=== PATIENT | male | born 1970 | race Caucasian/White ===

== ENCOUNTER → 2020-09-02 | Outpatient (CLI) | payer BC ==
[~2020-09-02] MED LIST: BICT1TAB PO; CALC250T PO; OMEP40CA42 PO; Vitamin D3 PO; [UNRECOGNIZED DRUG - OTHER] PO
[2020-09-02 09:48] LABS: ALANINE AMINOTRANSFERASE 33 U/L (12-78); ALBUMIN 4.4 g/dL (3.4-5.0); ANION GAP 5 mmol/L (5-15); CALCIUM 9.4 mg/dL (8.5-10.1); CHLORIDE 105 mmol/L (98-107); CREATININE 1.13 mg/dL (0.7-1.3)
[2020-09-02 09:50] LABS: ALKALINE PHOSPHATASE 76 U/L (45-117); TOTAL PROTEIN 8.7 g/dL (6.4-8.2)
== END | disposition home or self-care (01) ==
LOC: STAR 08:13
PROVIDERS: ATTEND Otolaryngology
DX: Z01.818 Encounter for other preprocedural examination (principal); J32.0 Chronic maxillary sinusitis; J35.2 Hypertrophy of adenoids; B20 Human immunodeficiency virus [HIV] disease; Z20.822 Contact with and (suspected) exposure to COVID-19
CPT/HCPCS: 36415; 80053; 93005; U0003

== ENCOUNTER 2020-09-08 09:16 | Day surgery (SDC) | payer BC ==
[~2020-09-08] VITALS: Ht 175.3 cm; Wt 117.5 kg
[~2020-09-08 09:16] MED LIST changes: +EPINEPHRINE TOPICAL SOLN 1 MG/ML, 30ML ONE; +LIDOCAINE/PF 1%, 30ML ONE; +OXYMETAZOLINE NASAL SPRAY 0.05%,30ML ONE
[2020-09-08 10:18] VITALS: BP 148/79
[2020-09-08] MEDS ORDERED: CHLORHEXIDINE 15 ML UDC ONE (10:28)
[2020-09-08] MEDS ORDERED: LACTATED RINGERS 1,000 ML IV SCH (10:30)
[2020-09-08] MEDS ORDERED: CHLORHEXIDINE 15 ML UDC MM ONE (10:30)
[2020-09-08] MEDS ORDERED: CEFAZOLIN 1,000 MG ONE (12:43)
[2020-09-08] MEDS ORDERED: SUCCINYLCHOLINE 20 MG/ML, 10ML ONE (12:43)
[2020-09-08] MEDS ORDERED: GLYCOPYRROLATE 0.2MG/1ML, 5ML ONE (12:43)
[2020-09-08] MEDS ORDERED: NEOSTIGMINE 1 MG/ML, 10ML ONE (12:43)
[2020-09-08] MEDS ORDERED: MIDAZOLAM 1 MG/ML, 2ML ONE (12:43)
[2020-09-08] MEDS ORDERED: FENTANYL PF 100 MCG/2ML ONE (12:43)
[2020-09-08] MEDS ORDERED: ROCURONIUM 10MG/ML,5ML ONE (12:43)
[2020-09-08] MEDS ORDERED: DEXAMETHASONE 4 MG/ML, 1ML ONE (12:43)
[2020-09-08] MEDS ORDERED: PROPOFOL 10 MG/ML, 20ML ONE (12:43)
[2020-09-08] MEDS ORDERED: ONDANSETRON 2MG/ML, 2ML ONE (12:43)
[2020-09-08] MEDS ORDERED: PHENYLEPHRINE 10 MG/ML ONE (13:33)
[2020-09-08] MEDS ORDERED: LIDOCAINE 1%-EPI 1:100K, 20ML INFIL ONE (14:13)
[2020-09-08] MEDS ORDERED: PROMETHAZINE 25 MG/ML, 1ML IVPush PRN ×2 (14:30→15:00)
[2020-09-08] MEDS ORDERED: ONDANSETRON 2MG/ML, 2ML IVPush PRN (14:30)
[2020-09-08] MEDS ORDERED: HYDROcodone/APAP 7.5-325MG/15ML UDC PO PRN ×2 (14:30→15:00)
[2020-09-08] MEDS ORDERED: MEPERIDINE/PF 25MG/0.5ML IVPush PRN (14:30)
[2020-09-08] MEDS ORDERED: HYDROmorphone 1 MG/ML, 1ML INJ IVPush PRN ×2 (14:30→15:00)
[2020-09-08] MEDS ORDERED: FENTANYL PF 100 MCG/2ML IV PRN ×2 (14:30→15:00)
[2020-09-08] MEDS ORDERED: OXYcodone 5 MG/5 ML ORAL.SOL UDC PO PRN ×2 (14:30→15:00)
[2020-09-08] MEDS ORDERED: BACITRACIN OINT 500U/GM, 15 GM ONE (14:43)
[2020-09-08] MEDS ORDERED: PROMETHAZINE 12.5 MG SUPP PR PRN (15:00)
[2020-09-08] MEDS ORDERED: LORazepam 2 MG/ML, 1ML ONE (15:09)
[2020-09-08] MEDS ORDERED: LORazepam 2 MG/ML, 1ML IVPush PRN (15:30)
[2020-09-08] MEDS ORDERED: hydrALAzine 20 MG/ML, 1ML IV PRN (16:30)
[2020-09-08] MEDS ORDERED: LABETALOL 5MG/ML, 20ML IV PRN (16:30)
[2020-09-08] MEDS ORDERED: hydrALAzine 20 MG/ML, 1ML ONE (16:30)
[2020-09-08] MEDS ORDERED: LABETALOL 5MG/ML, 20ML ONE (16:40)
== END 2020-09-08 18:20 | disposition home or self-care (01) ==
LOC: OUT 09:16
PROVIDERS: ATTEND Otolaryngology
DX: J32.0 Chronic maxillary sinusitis (principal); J34.3 Hypertrophy of nasal turbinates; J35.2 Hypertrophy of adenoids; J34.89 Other specified disorders of nose and nasal sinuses; B20 Human immunodeficiency virus [HIV] disease; E11.9 Type 2 diabetes mellitus without complications; K21.9 Gastro-esophageal reflux disease without esophagitis; F32.9 Major depressive disorder, single episode, unspecified; F41.9 Anxiety disorder, unspecified; Z79.899 Other long term (current) drug therapy; Z88.8 Allergy status to other drugs, medicaments and biological substances; Z98.890 Other specified postprocedural states; Z83.3 Family history of diabetes mellitus; Z80.9 Family history of malignant neoplasm, unspecified
CPT/HCPCS: 30140; 31240; 31255; 31256; 42831; 88304; 88305; J0330; J0360; J0690; J1100; J2060; J2250; J2370; J2405; J2704; J2710; J3010; J7120

== ENCOUNTER 2020-09-22 11:28 | Day surgery (SDC) | payer BC ==
[~2020-09-22] VITALS: Ht 175.3 cm; Wt 117.2 kg
[~2020-09-22 11:28] MED LIST changes: -EPINEPHRINE TOPICAL SOLN 1 MG/ML, 30ML ONE; -LIDOCAINE/PF 1%, 30ML ONE; -OXYMETAZOLINE NASAL SPRAY 0.05%,30ML ONE
[2020-09-22 11:59] VITALS: BP 126/79
[2020-09-22] MEDS ORDERED: CHLORHEXIDINE 15 ML UDC ONE (12:26)
[2020-09-22] MEDS ORDERED: OXYMETAZOLINE NASAL SPRAY 0.05%,30ML ONE (12:26)
== END 2020-09-22 13:10 | disposition home or self-care (01) ==
LOC: OUT 11:28
PROVIDERS: ATTEND Otolaryngology
DX: J32.0 Chronic maxillary sinusitis (principal); J34.3 Hypertrophy of nasal turbinates; J35.2 Hypertrophy of adenoids; Z20.822 Contact with and (suspected) exposure to COVID-19; Z79.899 Other long term (current) drug therapy
CPT/HCPCS: 87635